=== PATIENT | female | born 1940 | race Caucasian/White ===

== ENCOUNTER 2017-05-05 09:40 | Emergency (ER) | payer MEDICARE, BC ==
--- NOTE | 2017-05-05 10:11 | Emergency Department Record ---
History of Present Illness - General Chief Complaint: Back Pain/Injury Stated Complaint: BACK PAIN Time Seen by Provider: 05/05/17 10:00 Source: Patient Mode of Arrival: Wheelchair Limitations: No limitations - History of Present Illness Initial Comments: The patient is here due to lower back pain which started with waking up this AM. The pain is an aching sharp pain in the lower lumbar area that intermittently radiates to the R leg and R abdomen. The patient denies any weakness to the legs, numbness, tingling, or any bowel or bladder issues. She denies any recent trauma, injury, or lifting issues with pain. Additionally she has had no fever, chills, AP, nausea, vomiting, or diarrhea. MD Complaint: Back pain Onset/Timin -: Hour(s) Similar Symptoms Previously: No Place: Home Radiation: Abdomen, Right leg Severity scale (1-10): 8 Quality: Sharp Consistency: Constant Improves With: None Worsens With: Movement, Other Context: Unknown Associated Symptoms: Denies other symptoms Treatments Prior to Arrival: Acetaminophen Treatment Prior to Arrival Comment:: tylenol - Related Data Home Medications Medication Instructions Recorded Confirmed Last Taken Acetaminophen [Tylenol Arthritis] 650 mg PO DAILY 05/05/17 05/05/17 Unknown Amitriptyline HCl [Amitriptyline 25 mg PO DAILY 05/05/17 05/05/17 Unknown HCl] Aspirin [Aspirin EC] 81 mg PO DAILY 05/05/17 05/05/17 Unknown Bumetanide [Bumetanide] 2 mg PO DAILY 05/05/17 05/05/17 Unknown Lansoprazole [Prevacid] 30 mg PO DAILY 05/05/17 05/05/17 Unknown Metoprolol Succinate [Toprol Xl] 25 mg PO DAILY 05/05/17 05/05/17 Unknown Montelukast Sodium [Singulair] 10 mg PO DAILY 05/05/17 05/05/17 Unknown Potassium Chloride [Klor-Con] 10 meq PO DAILY 05/05/17 05/05/17 Unknown Solifenacin Succinate [Vesicare] 5 mg PO DAILY 05/05/17 05/05/17 Unknown Previous Rx's Medication Instructions Recorded Methylprednisolone [Medrol Dose 4 mg PO DAILY #1 tab.ds.pk 05/05/17 Pack] Allergies Allergy/AdvReac Type Severity Reaction Status Date / Time Opioids - Morphine Analogues Allergy BEHAVIORAL Verified 05/05/17 09:59 CHANGES Travel Screening - Travel/Exposure Within Last 30 Days Have you traveled within the last 30 days?: No Review of Systems Constitutional: Denies: Chills, Fever Eyes: Denies: Eye discharge ENT: Denies: Congestion Respiratory: Denies: Cough, Dyspnea Past Medical History - SOCIAL HISTORY Smoking Status: Never smoker Alcohol Use: None Drug Use: None - RESPIRATORY Hx Respiratory Disorders: Yes Hx Asthma: Yes - CARDIOVASCULAR Hx Cardio Disorders: Yes Hx Hypertension: Yes - NEURO Hx Neuro Disorders: Yes Comment:: brain aneurysm - GI Hx GI Disorders: Yes Hx Reflux: Yes - Hx Genitourinary Disorders: Yes Hx Bladder Problem: Yes - ENDOCRINE Hx Endocrine Disorders: No - MUSCULOSKELETAL Hx Musculoskeletal Disorders: Yes Hx Arthritis: Yes Hx Fibromyalgia: Yes - PSYCH Hx Psych Problems: No - HEMATOLOGY/ONCOLOGY Hx Hematology/Oncology Disorders: No Family Medical History Any Significant Family History?: No Physical Exam - General General Appearance: Alert, Oriented x3, Cooperative, No acute distress - Head Head exam: Atraumatic, Normocephalic, Normal inspection - Eye Eye exam: Normal appearance, PERRL - Neck Neck exam: Normal inspection, Full ROM. negative: Tenderness - Respiratory Respiratory exam: Normal lung sounds bilaterally. negative: Respiratory distress - Cardiovascular Cardiovascular Exam: Regular rate, Normal rhythm, Normal heart sounds - GI/Abdominal GI/Abdominal exam: Soft, Normal bowel sounds. negative: Tenderness - Extremities Extremities exam: Normal inspection, Full ROM, Normal capillary refill, Other ( Neg SLR bilaterally.). negative: Tenderness - Back Back exam: Reports: Normal inspection, Paraspinal tenderness, Vertebral tenderness (over the lower lumbar area and paraspinal area. There is no swelling , bruising, or erthema present.) - Neurological Neurological exam: Alert, Oriented X3, Reflexes normal (The patella reflexes are 2+ and equal bilaterally and the achilles reflexes are 1+ and equal bilaterally.). negative: Motor sensory deficit Course Vital Signs 05/05/17 09:52 Temperature 98.6 F Pulse Rate 68 Respiratory 16 Rate Blood Pressure 182/94 Pulse Ox 98 - Reevaluation(s) Reevaluation #1: The patient is doing better at this time. She is up walking with minimal pain and denies any leg numbness, tingling or weakness. I did discuss the lab work and xrays with the patient and the need for F/U. 05/05/17 11:32 Reevaluation #2: 05/05/17 11:44 05/05/17 11:46 Medical Decision Making - Data Complexity MDM Data: Labs Ordered and/or Reviewed, X-Ray Ordered and/or Reviewed - Lab Data Result diagrams: 05/05/17 10:17 05/05/17 10:17 - Radiology Data Radiology results: Report reviewed (Lumbar spine: DJD, no acute changes.) Disposition Disposition: Discharge Clinical Impression: Lumbar spine pain Disposition: Home, Self-Care Condition: (2) Stable Instructions: Low Back Strain (ED) Additional Instructions: Please take your home Tylenol for pain and start the Medrol dose pack. Please see your PCP in 2-3 days for recheck. Return to the ER for any increasing pain, leg weakness, numbness, or any bowel or bladder issues. Prescriptions: Methylprednisolone [Medrol Dose Pack] 4 mg PO DAILY #1 tab.ds.pk Forms: Patient Portal Access Time of Disposition: 11:35 Quality - Quality Measures Quality Measures: N/A - Blood Pressure Screening View Details: Yes Does Patient Have Any of the Following: No, Active Dx of HTN Blood Pressure Classification: Pre-Hypertensive BP Reading Systolic Measurement: 167 Diastolic Measurement: 85 Screening for High Blood Pressure: Patient Exclusion, Hx of HTN [[id number]]
[2017-05-05 10:22] LABS: BASO % 1.4 % (0-6); EOS % 3.4 % (0-6); GRAN % 57.2 % (47-80); HEMATOCRIT 41.7 % (35.0-47.0); HEMOGLOBIN 14.3 gm/dl (11.6-16.0); LYMPH % 28.7 % (16-45); MEAN CELL VOLUME 84.1 fl (81-97); MEAN CORPUSCULAR HEMOGLOBIN 28.8 pg (27-33); MEAN CORPUSCULAR HGB CONC 34.3 g/dl (32-36); MEAN PLATELET VOLUME 9.4 fl (7.4-10.4); MONO % 9.3 % (0-9); PLATELET COUNT 445 K/uL (130-400); RED BLOOD COUNT 4.96 M/uL (3.80-5.40); RED CELL DISTRIBUTION WIDTH 13.3 % (11.5-14.5); WHITE BLOOD COUNT W/O DIFF 5.6 K/uL (4.2-12.2)
[2017-05-05 10:53] LABS: BLOOD UREA NITROGEN 17 mg/dL (8-23)
[2017-05-05 10:54] LABS: CREATININE 0.8 mg/dL (0.5-0.9); EST GLOMERULAR FILTRATION RATE > 60 mL/min
[2017-05-05 10:56] LABS: GLUCOSE,RANDOM 87 mg/dL (74-109)
[2017-05-05] MEDS ORDERED: KETOROLAC 30 MG/ML VIAL IM ONE (11:04)
--- NOTE | 2017-05-05 11:50 | RADIOLOGY REPORT ---
EXAM: LUMBAR SPINE / AP LAT HISTORY: CHRONIC LOW BACK PAIN RADIATES DOWN BOTH LEGS. NO KNOWN INJURY. TECHNIQUE: Three-view lumbar spine. COMPARISON: None. FINDINGS: Five lumbar segments with mild dextroconvex curvature. 5 mm of anterolisthesis of L4 upon L5 due to advanced facet arthropathy. Moderate to severe disc disease at L1-2 manifested by loss of stature, vacuum disc, endplate osteophytes, and endplate sclerosis. Moderate degenerative disc disease at L2-3, L3-4, and L4-5. Mild to moderate disc disease at L4-5. No fracture. IMPRESSION: 1. 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 NO ACUTE PROCESS. 2. MULTILEVEL DEGENERATIVE DISC DISEASE MOST PRONOUNCED AT L1-2. JOB NUMBER: [id number] MTDD
== END 2017-05-05 11:51 | disposition home or self-care (01) ==
LOC: ER 09:40
DX: M54.5 Low back pain (principal); M79.604 Pain in right leg; I10 Essential (primary) hypertension
CPT/HCPCS: 72100; 80048; 85025; 96372; 99283; 99284; J1885